=== PATIENT | male | born 1950 | race Two or more races ===

== ENCOUNTER 2020-11-17 11:46 | Emergency (ER) | payer OTHER ==
[~2020-11-17] VITALS: Ht 180.3 cm; Wt 78.9 kg
[2020-11-17] MEDS ORDERED: ZESTRIL40 M1 (12:07)
[2020-11-17] MEDS ORDERED: METFORMIN HCL500 MG (12:07)
[2020-11-17] MEDS ORDERED: LIPITOR20 MG (12:07)
== END 2020-11-17 14:28 | disposition home or self-care (01) ==
LOC: ER 11:46
DX: N43.2 Other hydrocele (principal); Z03.818 Encounter for observation for suspected exposure to other biological agents ruled out; N50.812 Left testicular pain

== ENCOUNTER 2021-05-30 08:00 | Outpatient (CLI) | payer OTHER ==
[~2021-05-30 08:00] MED LIST: LIPITOR20 MG; METFORMIN HCL500 MG; ZESTRIL40 M1
== END 2021-05-30 08:30 | disposition home or self-care (01) ==
LOC: PPH VACUNA 08:00
DX: Z23 Encounter for immunization (principal)

== ENCOUNTER 2022-01-20 08:00 | Outpatient (CLI) | payer OTHER | END 2022-01-20 08:30 | disposition home or self-care (01) | LOC: PPH VACUNA 08:00 | PROVIDERS: ATTEND Emergency Medicine Pediatric Emergency Medicine | DX: Z23 Encounter for immunization (principal) ==

== ENCOUNTER 2024-11-28 10:18 | Outpatient (CLI) | payer OTHER | END 2024-11-28 10:19 | disposition home or self-care (01) | LOC: NUCLEAR 10:18 | PROVIDERS: ATTEND Anesthesiology | DX: R60.1 Generalized edema (principal) ==

== ENCOUNTER 2024-11-29 12:41 | Outpatient (CLI) | payer OTHER | END 2024-11-29 12:42 | disposition home or self-care (01) | LOC: NUCLEAR 12:41 | PROVIDERS: ATTEND Anesthesiology | DX: R60.9 Edema, unspecified (principal) ==